=== PATIENT | male | born 1945 | race Caucasian/White ===

== ENCOUNTER → 2018-10-17 | Outpatient (CLI) | payer OTHER ==
[~2018-10-17] MED LIST: ANTIFUNGAL30 GM T; COMPLETE MULTI1 EACH PO; COZAAR100 MG PO; KEFLEX500 MG PO; LIPITOR20 MG PO; METFORMIN ER500 MG PO; NEURONTIN100 MG PO; NORVASC5 MG PO; OMEPRAZOLE20 M2 PO; SPIROLINA PO; VICODIN ES 7501 TAB PO; VITAMIN B121000 MC1 PO; VITAMIN D31000 UNI1 PO; ZOLOFT100 MG PO
== END | disposition home or self-care (01) ==
LOC: CARD 14:49
DX: I07.1 Rheumatic tricuspid insufficiency (principal); R53.1 Weakness

== ENCOUNTER → 2018-10-27 | Outpatient (CLI) | payer OTHER ==
--- NOTE | ~2018-10-27 | ST ---
[place], [place] EXERCISE STRESS TEST REPORT [id number] UNIT #: [id number] ROOM: DOCTOR: RUBEN MCKENNA BIRTHDATE: [birth year] DOS: 10/27/2018 INDICATION: Fatigue, exercise intolerance. PROTOCOL: Exercise SPECT myocardial perfusion imaging, Alonso protocol. Baseline EKG showed normal sinus rhythm with a rate of 60 beats per minute. Normal axis with normal intervals. No ST or T-wave abnormalities. The patient exercised for a total of 7 minutes and 14 seconds, achieving a peak heart rate of 134, which is 91% of age-predicted maximum. Peak blood pressure is 160/60 mmHg. Total workload achieved 10 mets, which is average for age. The patient reported no chest pain during exercise. Stress EKG showed no evidence of ischemia and no arrhythmias were noted. IMPRESSION: 1. No evidence of ischemia on stress EKG. 2. Normal blood pressure response to exercise. 3. Normal heart rate recovery. 4. Average functional capacity. 5. Nuclear images to be reported separately. Dr. RUBEN MCKENNA MD CM:STRESS:EXERCISE STRESS TEST REPORT [id number] RUBEN MCKENNA
--- NOTE | 2018-10-27 10:15 | NUR ---
DR. MCKENNA DISCUSSED STRESS TESTING WITH PT AND SWITCHED FROM LEXISCAN TO EXERCISE CARDIOLITE STRESS TEST. INFORMED CONSENT OBTAINED FOR EXERCISE CARDIOLITE STRESS TEST. RESTING EKG NSR WITH A RESTING HR OF 61 WITH BP OF 130/68 IN SUPINE POSITION AND HR OF 55 WITH BP OF 130/58 IN STANDING POSITION. PT COMPLETED 7:14 OF A JOHN PROTOCOL WITH COMPLETION OF 1:14 OF STAGE III AT 3.4 MPH AND 14% GRADE. REACHED A PEAK HR OF 134 WHICH IS 91% OF PREDICTED MAX WITH A PEAK BP OF 160/68. TEST TERMINATED BECAUSE OF FATIGUE. HAD NO CHEST PAIN OR ANY EKG CHANGES. HAS A GOOD EXERCISE TOLERANCE. LAST RECOVERY HR OF 79 WITH BP OF 132/60. AWAITING SCANNING IN STABLE CONDITION.
== END | disposition home or self-care (01) ==
LOC: CARD 00:15
DX: I10 Essential (primary) hypertension (principal); R53.1 Weakness; R53.81 Other malaise